=== PATIENT | female | born 1960 | race Caucasian/White ===

== ENCOUNTER → 2018-02-24 09:24 | Outpatient (CLI) | payer OTHER, MEDICAID, SELFPAY | PROVIDERS: Visit Provider Physician Assistant | DX: R52 Pain, unspecified (principal) | CPT/HCPCS: 87086 ==

== ENCOUNTER → 2018-02-24 09:41 | Outpatient (CLI) | payer OTHER, MEDICAID, SELFPAY | PROVIDERS: Visit Provider Physician Assistant | DX: R10.9 Unspecified abdominal pain (principal) | CPT/HCPCS: 36415; 80048; 85025; 87086 ==

== ENCOUNTER → 2018-02-24 11:21 | Outpatient (CLI) | payer OTHER, MEDICAID, SELFPAY ==
[2018-02-24 09:55] LABS: Add Manual Diff / Slide Review NO; Basophils Percent Auto 0.5 % (0-2); Eosinophils Percent Auto 2.8 % (2-4); Hemoglobin 15.6 g/dL (12.0-16.0); Lymphocytes Percent Auto 21.4 % (25-40); Mean Corpuscular HGB Conc 34.6 % (30-36); Mean Corpuscular Hemoglobin 30.6 PG (26-34); Mean Corpuscular Volume 88.4 fL (80-100); Monocytes Percent Auto 7.3 % (3-14); Neutrophils Absolute Auto 3800 /uL (3000-5900); Platelet Count 266 X10^3/uL (150-400); Red Blood Cell Count 5.09 X10^6/uL (4.0-5.2); Red Cell Distribution Width 13.3 % (11.6-14.8); White Blood Cell Count 5.7 X10^3/uL (4.5-11.0)
[2018-02-24 10:07] LABS: Blood Urea Nitrogen 12 mg/dL (7-17); Calcium 9.5 mg/dL (8.4-10.2); Carbon Dioxide 30 mmol/L (22-32); Chloride 105 mmol/L (98-107); Estimated Glomerular Filt Rate > 60.0 mL/min (>60); Glucose 92 mg/dL (80-110); HEMOLYSIS < 15 (0-50); Potassium 4.3 mmol/L (3.4-5.1); Sodium 145 mmol/L (137-145)
--- NOTE | 2018-02-24 11:27 | DI.CT.S_ITS ---
PROCEDURE: CT KIDNEY URETER BLADDER (KUB) INDICATIONS: Possible infected kidney stone, left flank pain TECHNIQUE: Noncontrast 5 mm thick sections acquired from the diaphragms to the symphysis. 5 mm thick coronal and sagittal reformats were then performed. For radiation dose reduction, the following was used: automated exposure control, adjustment of mA and/or kV according to patient size. COMPARISON: None. FINDINGS: Image quality: Excellent. Lung bases: Lung bases are clear. Heart size is normal. Urinary system: Both kidneys are normal in size. No kidney stones. No hydronephrosis or perinephric fat stranding. Both ureters appear non-dilated throughout their expected courses. Bladder wall thickness is normal; no calcified bladder stones. Other solid organs: There is diffuse hepatic fatty infiltration. Liver is normal in size. Gallbladder is normal. Pancreas is normal in contours. Spleen is normal in size. No adrenal nodules. Peritoneum and bowel: Unenhanced bowel loops demonstrate normal wall thickness and caliber. No free fluid or air. Nodes and vessels: No retroperitoneal or mesenteric adenopathy by size criteria. Aorta and inferior vena cava are normal in caliber. Abdominal wall: Tiny fat-containing umbilical hernia is noted. Pelvis: No free pelvic fluid. No inguinal hernias or adenopathy. Bones: No suspicious bony lesions. No vertebral body compression fractures. IMPRESSION: 1. No renal stone hydronephrosis. No CT findings to explain left flank pain. 2. Hepatic steatosis. Dictated by: Cristina Patel M.D. on 02/24/2018 at 11:40 Approved by: Cristina Patel M.D. on 02/24/2018 at 11:53
== END ==
PROVIDERS: Visit Provider Physician Assistant
DX: R10.9 Unspecified abdominal pain (principal); K76.0 Fatty (change of) liver, not elsewhere classified; R52 Pain, unspecified
CPT/HCPCS: 36415; 74176; 80048; 85025; 87077; 87086; 87186

== ENCOUNTER → 2018-08-19 15:58 | Outpatient (CLI) | payer OTHER, MEDICAID, SELFPAY ==
[2018-08-24 21:06] LABS: Fecal Immunochemical Test NOT DETECTED (NOT DETECTED)
== END ==
PROVIDERS: PCP Physician Assistant; Visit Provider Physician Assistant
DX: Z12.11 Encounter for screening for malignant neoplasm of colon (principal)
CPT/HCPCS: 82274

== ENCOUNTER → 2018-10-16 15:32 | Outpatient (CLI) | payer OTHER, MEDICAID, SELFPAY ==
[2018-10-16 16:13] LABS: Add Manual Diff / Slide Review NO; Basophils Absolute Auto 0 /uL (0-100); Basophils Percent Auto 0.5 % (0-2); Eosinophils Absolute Auto 100 /uL (0-450); Eosinophils Percent Auto 1.9 % (2-4); Hematocrit 41.9 % (36-46); Hemoglobin 14.5 g/dL (12.0-16.0); Lymphocytes Absolute Auto 1500 /uL (1100-4500); Lymphocytes Percent Auto 24.6 % (25-40); Mean Corpuscular HGB Conc 34.6 % (30-36); Mean Corpuscular Hemoglobin 29.7 PG (26-34); Monocytes Absolute Auto 400 /uL (0-900); Monocytes Percent Auto 6.2 % (3-14); Neutrophils Absolute Auto 4000 /uL (1500-7000); Neutrophils Percent Auto 66.8 % (50-75); Platelet Count 242 X10^3/uL (150-400); Red Blood Cell Count 4.87 X10^6/uL (4.0-5.2); Red Cell Distribution Width 13.3 % (11.6-14.8); White Blood Cell Count 5.9 X10^3/uL (4.5-11.0)
[2018-10-16 16:29] LABS: Alanine Aminotransferase 71 IU/L (9-52); Albumin 4.6 g/dL (3.5-5.0); Albumin Globulin Ratio 1.5 (1.0-2.8); Alkaline Phosphatase 65 U/L (38-126); Aspartate Aminotransferase 54 IU/L (14-36); Bilirubin Total 0.6 mg/dL (0.2-1.3); Blood Urea Nitrogen 18 mg/dL (7-17); Calcium 9.4 mg/dL (8.4-10.2); Carbon Dioxide 28 mmol/L (22-32); Chloride 105 mmol/L (98-107); Estimated Glomerular Filt Rate > 60.0 mL/min (>60); Globulin 3.1 g/dL (1.7-4.1); Glucose 103 mg/dL (80-110); HEMOLYSIS < 15 (0-50); Sodium 144 mmol/L (137-145); Total Protein 7.7 g/dL (6.3-8.2)
== END ==
PROVIDERS: PCP Physician Assistant; Visit Provider Physician Assistant
DX: M54.5 Low back pain (principal)
CPT/HCPCS: 36415; 80053; 85025

== ENCOUNTER → 2019-07-19 17:14 | Outpatient (CLI) | payer OTHER, MEDICAID, SELFPAY ==
--- NOTE | 2019-07-19 17:16 | DI.RAD.S_ITS ---
PROCEDURE: XR ANKLE RT MIN 3V INDICATIONS: R lateral malleolus pain TECHNIQUE: 3 views of the ankle were acquired. COMPARISON: None. FINDINGS: Bones: No fractures or dislocations. Ankle mortise is normally aligned. No suspicious bony lesions. Soft tissues: No tibiotalar joint effusion. Achilles tendon appears normal. Mild lateral ankle soft tissue swelling is seen. IMPRESSION: No acute ankle fracture or dislocation. Mild lateral ankle soft tissue swelling. Dictated by: Chris Moses M.D. on 07/19/2019 at 17:29 Approved by: Chris Moses M.D. on 07/19/2019 at 17:37
== END ==
PROVIDERS: PCP Physician Assistant; Referring Provider Nurse Practitioner; Visit Provider Nurse Practitioner
DX: M25.571 Pain in right ankle and joints of right foot (principal)
CPT/HCPCS: 73610

== ENCOUNTER 2024-01-20 21:30 | Emergency (ER) | payer MEDICARE, SELFPAY ==
[2024-01-20] VITALS (8 sets, daily range): BP systolic 146–152; BP diastolic 71–81; PULSE 87–110; RESP 13–23; TEMP 37.3–38; O2SAT 93–97; BMI 28.5
--- NOTE | 2024-01-20 22:01 | ED.HA ---
HPI - Headache General Chief Complaint: Headache Stated Complaint: swollen sore face, fever, achy, headache Time Seen by Provider: 01/20/24 21:44 Mode of arrival: Ambulatory History of Present Illness HPI Narrative: 63-year-old female presents by private vehicle from home for approximately 3 days red facial pain, headache, chills. Took 200 mg of ibuprofen at 7:30 pm prior to arrival. Patient states that the front of her face feels very puffy. 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 Related Data Home Medications Medication Instructions Recorded Confirmed Vitamin D3 See Rx Instructions .Route .COMPLEX 12/30/17 07/19/19 Previous Rx's Medication Instructions Recorded cephalexin 500 mg capsule 500 mg PO Q6H 10 days #40 caps 01/20/24 Allergies Allergy/AdvReac Type Severity Reaction Status Date / Time No Known Allergies Allergy Uncoded 02/24/18 09:17 Patient History Medical History (Updated 01/20/24 @ 23:18 by Kandis Knight MD) Basal cell carcinoma Surgical History History of nasal surgery (~1979) Status post delivery (~1978) Family History Father Cancer Mother Squamous cell carcinoma Basal cell carcinoma Brother Basal cell carcinoma Migraines Sister Hypertension Social History Smoking Status: Never smoker second hand exposure: No alcohol intake: current substance use type: does not use Smoking Status: Never smoker Substance Use Type: does not use Exam Initial Vital Signs Initial Vital Signs: Vital Signs Temperature 99.2 F 01/20/24 21:34 Pulse Rate 110 H 01/20/24 21:34 Respiratory Rate 20 01/20/24 21:34 Blood Pressure 152/79 H 01/20/24 21:34 Pulse Oximetry 97 01/20/24 21:34 Oxygen Delivery Method Room Air 01/20/24 21:34 Const: Awake, alert, nontoxic appearing HEENT: PERRL, EOMI, TM normal bilaterally Cardiac: regular rate, regular rhythm RESP: unlabored, clear bilaterally, no wheezing Skin: Warm, Dry, erythematous, raised rash over cheeks and forhead, well demarcated Neuro: AO x3, CN II-XII grossly intact, moves all extremities Course Orders Ordered: ED Orders 01/20/24 22:05 Respiratory Panel (Film Array) Stat 01/20/24 22:10 CBC Auto Diff [Complete Blood Count AUTO DIFF] Stat CMP [Comprehensive Metabolic Panel] Stat Discontinued Medications Cephalexin HCl (Cephalexin 250 Mg Capsule) 500 mg PO NOW ONE Stop: 01/20/24 23:12 Last Admin: 01/20/24 23:19 Dose: 500 mg Documented By: SLADE Diphenhydramine HCl (Diphenhydramine 50 Mg/Ml Vial) 50 mg IV NOW ONE Stop: 01/20/24 22:01 Last Admin: 01/20/24 22:19 Dose: 50 mg Documented By: SLADE Acetaminophen (Ofirmev) 1,000 mg in 100 mls @ 400 mls/hr IV NOW ONE Stop: 01/20/24 22:14 Last Infusion: 01/20/24 22:42 Dose: Infused Documented By: Admin: 01/20/24 22:20 Dose: 400 mls/hr Documented By: SLADE Sodium Chloride (Normal Saline 0.9%) 1,000 mls @ 1,000 mls/hr IV BOLUS ONE Stop: 01/20/24 22:59 Last Infusion: 01/20/24 23:20 Dose: Infused Documented By: Admin: 01/20/24 22:19 Dose: 1,000 mls/hr Documented By: SLADE Metoclopramide HCl (Metoclopramide 10 Mg/2 Ml Inj) 10 mg IV NOW ONE Stop: 01/20/24 22:01 Last Admin: 01/20/24 23:15 Dose: Not Given Documented By: KAELA Vital Signs Vital signs: Vital Signs - 8 hr 01/20/24 22:00 01/20/24 22:00 01/20/24 22:30 Temperature Pulse Rate 99 H Respiratory Rate 20 Blood Pressure 148/71 H 149/77 H Pulse Oximetry 94 Oxygen Delivery Method 01/20/24 22:30 01/20/24 23:00 01/20/24 23:00 Temperature Pulse Rate 97 H 87 Respiratory Rate 13 23 Blood Pressure 147/75 H Pulse Oximetry 94 93 Oxygen Delivery Method Room Air 01/20/24 23:12 01/20/24 23:12 01/20/24 23:33 Temperature 100.4 F H Pulse Rate 88 Respiratory Rate 18 Blood Pressure 148/81 H Pulse Oximetry 95 Oxygen Delivery Method MDM - Headache Differential Diagnosis Differential diagnosis: Likely migraine, tension headache and headache Lab Data 01/20/24 22:10 01/20/24 22:10 Labs: Lab Results 01/20/24 01/20/24 Range/Units 22:05 22:10 WBC 11.2 H (4.5-11.0) X10^3/uL RBC 4.83 (4.0-5.2) X10^6/uL Hgb 14.3 (12.0-16.0) g/dL Hct 40.7 (36-46) % MCV 84.1 (80-100) fL MCH 29.5 (26-34) PG MCHC 35.1 (30-36) % RDW 13.3 (11.6-14.8) % Plt Count 215 (150-400) X10^3/uL Neut % (Auto) 83.8 H (50-75) % Lymph % (Auto) 8.4 L (25-40) % [place] % (Auto) 7.2 (3-14) % Eos % (Auto) 0.2 L (2-4) % Baso % (Auto) 0.4 (0-2) % Neut # (Auto) 9400 H (2160-9824) /uL Lymph # (Auto) 900 L (5351-0983) /uL [place] # (Auto) 800 (0-900) /uL Eos # (Auto) 0 (0-450) /uL Baso # (Auto) 0 (0-100) /uL Sodium 136 L (137-145) mmol/L Potassium 3.9 (3.4-5.1) mmol/L Chloride 104 (98-107) mmol/L Carbon Dioxide 25 (22-32) mmol/L BUN 12 (7-17) mg/dL Creatinine 0.69 (0.52-1.04) mg/dL Estimated GFR > 60 (>60) mL/min BUN/Creatinine Ratio 17.4 (6-22) Glucose 144 H (80-110) mg/dL Calcium 9.0 (8.4-10.2) mg/dL Total Bilirubin 0.8 (0.2-1.3) mg/dL AST 31 (14-36) IU/L ALT 36 H (<35) IU/L Alkaline Phosphatase 68 (38-126) U/L Total Protein 7.8 (6.3-8.2) g/dL Albumin 4.2 (3.5-5.0) g/dL Globulin 3.6 (1.7-4.1) g/dL Albumin/Globulin Ratio 1.2 (1.0-2.8) Chlamy pneumoniae PCR Not detected (Not Detect) Adenovirus (PCR) Not detected (Not Detect) B. pertussis DNA (PCR) Not detected (Not Detect) B.parapertussis DNA PCR Not detected (Not Detecte) Coronavirus OC43 (PCR) Not detected (Not Detect) Coronavirus HKU1 (PCR) Not detected (Not Detect) Coronavirus 229E (PCR) Not detected (Not Detect) SARS-CoV-2 (PCR) Not detected (Not Detecte) Coronavirus NL63 (PCR) Not detected (Not Detect) Human Metapneumovir PCR Not detected (Not Detect) Influenza Type A (PCR) Not detected (Not Detect) Influenza Type B (PCR) Not detected (Not Detect) M. pneumoniae (PCR) Not detected (Not Detect) Parainfluenza 1 (PCR) Not detected (Not Detect) Parainfluenza 2 (PCR) Not detected (Not Detect) Parainfluenza 3 (PCR) Not detected (Not Detect) Parainfluenza 4 (PCR) Not detected (Not Detect) RSV (PCR) Not detected (Not Detect) Entero/Rhino (PCR) Not detected (Not Detect) MDM Narrative Medical decision making narrative: Nontoxic appearing patient with raised facial rash in appearance of erysipelas. Patient's headache is low-grade, not worst headache of life, classically associated with erysipelas. Basic laboratory work ordered. Headache cocktail ordered. If patient has any red flag change in symptoms we will consider doing CT scan of brain, however at this time symptoms more consistent with peripheral process. Laboratory work reviewed, unremarkable, no leukocytosis, normal electrolytes. Respiratory panel negative for common respiratory pathogens. Patient reported feeling significantly improved after receiving headache cocktail, however she did decline Reglan. Patient counseled on presumptive diagnosis. Given 1st dose of Keflex and prescription sent to pharmacy of choice. Counseled use of Tylenol and ibuprofen as needed for pain or discomfort. ED return precautions discussed at bedside. Discharge Plan Departure Patient Disposition: Home Clinical Impression: Cellulitis of face Instructions: DI for Erysipelas Activity Restrictions/Additional Instructions: Your rash today appears consistent with erysipelas, which can be a type of cellulitis. You were given your 1st dose of antibiotic here today, the rest has been sent to the [facility] in [place]. Finish all of the medications even if you feel improved. Take 1000 mg of Tylenol and 400 mg of ibuprofen every 6-8 hours as needed for pain or fever. Make sure to drink plenty of fluids. Prescriptions: New cephalexin 500 mg capsule 500 mg PO Q6H 10 Days Qty: 40 0RF No Action Vitamin D3 See Rx Instructions .ROUTE .COMPLEX Patient Comments: 5,000 IU PO once a week when patient remembers. Rx Instructions: 5,000 IU PO once a week when patient remembers. Referrals: Carmen Nevarez PA-C [Primary Care Provider] - Stand Alone Forms: Patient Portal/API
[2024-01-20 22:17] LABS: Add Manual Diff / Slide Review NO; Basophils Absolute Auto 0 /uL (0-100); Basophils Percent Auto 0.4 % (0-2); Eosinophils Absolute Auto 0 /uL (0-450); Eosinophils Percent Auto 0.2 % (2-4); Hematocrit 40.7 % (36-46); Hemoglobin 14.3 g/dL (12.0-16.0); Lymphocytes Absolute Auto 900 /uL (1100-4500); Lymphocytes Percent Auto 8.4 % (25-40); Mean Corpuscular HGB Conc 35.1 % (30-36); Mean Corpuscular Hemoglobin 29.5 PG (26-34); Mean Corpuscular Volume 84.1 fL (80-100); Monocytes Absolute Auto 800 /uL (0-900); Monocytes Percent Auto 7.2 % (3-14); Neutrophils Absolute Auto 9400 /uL (1500-7000); Neutrophils Percent Auto 83.8 % (50-75); Platelet Count 215 X10^3/uL (150-400); Red Blood Cell Count 4.83 X10^6/uL (4.0-5.2); Red Cell Distribution Width 13.3 % (11.6-14.8); White Blood Cell Count 11.2 X10^3/uL (4.5-11.0)
[2024-01-20] MEDS: diphenhydrAMINE 50 MG/ML VIAL IV (22:19)
[2024-01-20] MEDS: SODIUM CHLORIDE 0.9% 1,000 ML 1000 ML IV (22:19)
[2024-01-20] MEDS: ACETAMINOPHEN IV 1,000 MG/100 ML VIAL 400 MG IV (22:20)
[2024-01-20 22:29] LABS: Alanine Aminotransferase 36 IU/L (<35); Albumin 4.2 g/dL (3.5-5.0); Albumin Globulin Ratio 1.2 (1.0-2.8); Alkaline Phosphatase 68 U/L (38-126); Aspartate Aminotransferase 31 IU/L (14-36); BUN Creatinine Ratio 17.4 (6-22); Bilirubin Total 0.8 mg/dL (0.2-1.3); Blood Urea Nitrogen 12 mg/dL (7-17); Carbon Dioxide 25 mmol/L (22-32); Chloride 104 mmol/L (98-107); Estimated Glomerular Filt Rate > 60 mL/min (>60); Globulin 3.6 g/dL (1.7-4.1); Glucose 144 mg/dL (80-110); HEMOLYSIS < 15 (0-50); Potassium 3.9 mmol/L (3.4-5.1); Sodium 136 mmol/L (137-145); Total Protein 7.8 g/dL (6.3-8.2)
[2024-01-20 23:00] LABS: Adenovirus Not Detected (Not Detect); B. parapertussis Not Detected (Not Detecte); Bordetella pertussis Not Detected (Not Detect); Chlamydophila pneumoniae Not Detected (Not Detect); Coronavirus 229E Not Detected (Not Detect); Coronavirus HKU1 Not Detected (Not Detect); Coronavirus NL 63 Not Detected (Not Detect); Coronavirus OC43 Not Detected (Not Detect); Human Metapneumovirus Not Detected (Not Detect); Human Rhinovirus/Enterovirus Not Detected (Not Detect); Influenza A Not Detected (Not Detect); Influenza B Not Detected (Not Detect); Mycoplasma pneumoniae Not Detected (Not Detect); Parainfluenza Virus 1 Not Detected (Not Detect); Parainfluenza Virus 2 Not Detected (Not Detect); Parainfluenza Virus 3 Not Detected (Not Detect); Parainfluenza Virus 4 Not Detected (Not Detect); Respiratory Syncytial Virus Not Detected (Not Detect); SARS- CoV-2 Not Detected (Not Detecte)
[2024-01-20] MEDS: cephALEXin 250 MG CAPSULE 500 MG PO (23:19)
== END 2024-01-20 23:35 | disposition home or self-care (01) ==
PROVIDERS: Emergency Provider Emergency Medicine; PCP Physician Assistant
DX: L03.211 Cellulitis of face (principal); R51.9 Headache, unspecified; Z11.52 Encounter for screening for COVID-19
CPT/HCPCS: 36415; 80053; 85025; 87633; 96361; 96365; 96375; 99284; J0136; J1200